=== PATIENT | female | born 1975 | race Caucasian/White ===

== ENCOUNTER 2020-03-25 09:57 | Outpatient (REF) | payer OTHER, SELFPAY ==
--- NOTE | 2020-03-25 10:01 | MM_ITS ---
EXAMINATION: MM SCREENING DIGITAL BREAST TOMOSYNTHESIS, BILATERAL CLINICAL INFORMATION: Screening. Asymptomatic. The lifetime risk of breast cancer based on the Tyrer-Cuzick Model is 14.1%. COMPARISON: Mammography: The 2018 and studies dating back to March 29, 2013 TECHNIQUE: Digital breast tomosynthesis is performed in both the craniocaudal and mediolateral oblique views along with computer-aided detection (CAD). Synthesized 2D images are generated from the tomosynthesis. FINDINGS: There are scattered areas of fibroglandular density (ACR BI-RADS breast composition Category b). There are no significant masses, abnormal calcifications, or other abnormalities. MM/MM tomosynthesis screening BI IMPRESSION: There are no significant changes from prior study. ASSESSMENT: BI-RADS 1: Negative RECOMMENDATION: Routine annual mammography screening. This patient's information was entered into a reminder system with a target due date for their next mammogram.
== END 2020-03-25 09:58 | disposition home or self-care (01) ==
LOC: HO.MAMMO 09:57
PROVIDERS: PCP Internal Medicine; Visit Provider Internal Medicine
DX: Z12.31 Encounter for screening mammogram for malignant neoplasm of breast (principal)
CPT/HCPCS: 77063; 77067

== ENCOUNTER → 2021-01-01 09:58 | Outpatient (BNVA) | payer OTHER, SELFPAY | PROVIDERS: PCP Internal Medicine; Visit Provider Advanced Practice Midwife ==

== ENCOUNTER 2021-04-07 10:35 | Outpatient (REF) | payer OTHER, SELFPAY ==
--- NOTE | ~2021-04-07 | MM_ITS ---
EXAMINATION: MM SCREENING DIGITAL BREAST TOMOSYNTHESIS, BILATERAL CLINICAL INFORMATION: Screening. Asymptomatic. The lifetime risk of breast cancer based on the Tyrer-Cuzick Model is 15%. COMPARISON: Mammography: 03/25/2020, 03/20/2019, 03/18/2018 TECHNIQUE: Digital breast tomosynthesis is performed in both the craniocaudal and mediolateral oblique views along with computer-aided detection (CAD). Synthesized 2D images are generated from the tomosynthesis. FINDINGS: There are scattered areas of fibroglandular density (ACR BI-RADS breast composition Category b). There are no significant masses, abnormal calcifications, or other abnormalities. The axilla and skin contours are unremarkable. Parenchymal pattern is similar to prior studies. No developing density. No significant changes. MM/MM tomosynthesis screening BI IMPRESSION: No mammographic evidence of malignancy. ASSESSMENT: BI-RADS 1: Negative RECOMMENDATION: Routine annual mammography screening. This patient's information was entered into a reminder system with a target due date for their next mammogram.
== END 2021-04-07 10:36 | disposition home or self-care (01) ==
LOC: HO.MAMMO 10:35
PROVIDERS: Visit Provider Internal Medicine
DX: Z12.31 Encounter for screening mammogram for malignant neoplasm of breast (principal)
CPT/HCPCS: 77063; 77067

== ENCOUNTER 2022-03-18 12:48 | Outpatient (REF) | payer OTHER, SELFPAY ==
--- NOTE | ~2022-03-18 | US_ITS ---
EXAMINATION: US PELVIS CLINICAL INFORMATION: Normal uterine bleeding, last menstrual period 02/23/2022. COMPARISON: 11/20/2016 TECHNIQUE: Ultrasound of the pelvis is performed using both transabdominal and transvaginal transducers along with Doppler. Transvaginal imaging is performed due to inadequate visualization transabdominally. FINDINGS: The uterus is heterogeneous and measures 8.4 x 4.2 x 5.3 cm. No discrete fibroids. Endometrial thickness is 0.7 cm. No significant free fluid. Nabothian cysts present. Right ovary is seen only on limited transabdominal ultrasound images and is grossly unremarkable. Right ovary measures 3.4 x 1.7 x 3.2 cm, volume 8.4 mL. Left ovary measures 2.0 x 2.0 x 1.5 cm, volume 3.2 mL. Simple left ovarian cyst measures 1.5 x 1.5 x 1.4 cm. US/US pelvic and transvaginal IMPRESSION: 1. Left ovarian 1.5 cm simple cyst was not identified on prior ultrasound. 2. No discrete fibroid. 3. Endometrial thickness is 0.7 cm. 4. Right ovary is grossly unremarkable on limited transabdominal ultrasound images. 5. Correlation with menstrual history and gynecologic consultation recommended.
[2022-03-18 14:08] LABS: Hematocrit 42.2 % (37.0-47.0); Mean Corpuscular HGB Conc 33.2 g/dl (31.0-35.0); Mean Corpuscular Hemoglobin 30.4 pg (27.0-33.0); Mean Corpuscular Volume 91.7 fL (80.0-98.0); Mean Platelet Volume 10.5 fL (9.4-12.3); Platelet Count 257 X10*3/uL (160-400); Red Cell Distribution Width 12.4 % (11.0-16.0); White Blood Count 9.5 X10*3/uL (4.8-10.8)
[2022-03-18 14:43] LABS: Thyroid Stimulating Hormone 1.65 uIU/mL (0.32-4.0)
== END 2022-03-18 12:49 | disposition home or self-care (01) ==
LOC: HO.HMGCX 12:48
PROVIDERS: PCP Internal Medicine; Visit Provider Advanced Practice Midwife
DX: N93.9 Abnormal uterine and vaginal bleeding, unspecified (principal); N92.1 Excessive and frequent menstruation with irregular cycle
CPT/HCPCS: 36415; 76830; 76856; 84443; 85027

== ENCOUNTER → 2022-04-01 09:24 | Outpatient (BNVA) | payer OTHER, SELFPAY | PROVIDERS: PCP Internal Medicine; Visit Provider Advanced Practice Midwife | DX: Z71.2 Person consulting for explanation of examination or test findings (principal); N93.9 Abnormal uterine and vaginal bleeding, unspecified; R23.2 Flushing | CPT/HCPCS: 58100 ==

== ENCOUNTER 2022-04-27 09:46 | Outpatient (REF) | payer OTHER, SELFPAY ==
--- NOTE | ~2022-04-27 | MM_ITS ---
EXAMINATION: MM SCREENING DIGITAL BREAST TOMOSYNTHESIS, BILATERAL CLINICAL INFORMATION: Screening. Asymptomatic. The lifetime risk of breast cancer based on the Tyrer-Cuzick Model is 16%. COMPARISON: Mammography: 04/07/2021, 03/25/2020, 03/20/2019 TECHNIQUE: Digital breast tomosynthesis is performed in both the craniocaudal and mediolateral oblique views along with computer-aided detection (CAD). Synthesized 2D images are generated from the tomosynthesis. FINDINGS: There are scattered areas of fibroglandular density (ACR BI-RADS breast composition Category b). There are no significant masses, abnormal calcifications, or other abnormalities. Parenchymal pattern is similar to prior studies. There is no developing density or architectural abnormality. The axilla and skin contours are unremarkable. No significant changes. MM/MM tomosynthesis screening BI IMPRESSION: No mammographic evidence of malignancy. ASSESSMENT: BI-RADS 1: Negative RECOMMENDATION: Routine annual mammography screening. This patient's information was entered into a reminder system with a target due date for their next mammogram.
== END 2022-04-27 09:47 | disposition home or self-care (01) ==
LOC: HO.MAMMO 09:46
PROVIDERS: PCP Internal Medicine; Visit Provider Internal Medicine
DX: Z12.31 Encounter for screening mammogram for malignant neoplasm of breast (principal)
CPT/HCPCS: 77063; 77067

== ENCOUNTER 2022-05-15 12:07 | Outpatient (REF) | payer OTHER, SELFPAY | END 2022-05-15 12:08 | disposition home or self-care (01) | LOC: HO.LNP 12:07 | PROVIDERS: PCP Internal Medicine; Visit Provider Obstetrics & Gynecology | DX: N93.9 Abnormal uterine and vaginal bleeding, unspecified (principal) | CPT/HCPCS: 58100; 88305 ==

== ENCOUNTER → 2022-06-04 13:04 | Outpatient (BNVA) | payer OTHER, SELFPAY | PROVIDERS: PCP Internal Medicine; Visit Provider Obstetrics & Gynecology | DX: Z13.89 Encounter for screening for other disorder (principal) ==

== ENCOUNTER → 2022-09-30 08:00 | Outpatient (BNVA) | payer OTHER, SELFPAY | PROVIDERS: PCP Internal Medicine; Visit Provider Obstetrics & Gynecology ==

== ENCOUNTER 2023-02-28 08:53 | Outpatient (AMB) | payer OTHER, SELFPAY ==
[2023-02-28 09:02] VITALS: BP 116/74; BMI 46.6
--- NOTE | 2023-02-28 09:02 | A.OFFVIS_ITS ---
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 Scribed for JULIA Alegre by Varsha Sawant medical office professional instructor, on 02/28/2023 at 9:25 am EST Extension Service Specialist Required: No Information Interpreted: non-clinical & clinical Door Operator: Door Operator Present (Aidyn) Allergies Penicillins Allergy (Unknown, Verified 02/28/23 09:05) HIVES Is last menstrual period known: Yes Last menstrual period: 01/19/23 Post menopausal: No HPI HPI Comments History of Present Illness Details She is a premenopausal woman presenting for annual exam. She attempts to eat healthy. She admits to not staying active. Currently sexually active. Uses condoms for BC. HX of irregular menses. Takes intermittent Provera. She had one in August last year, then nothing until March. Last menses was January 2023. Reports mild hot flashes. Denies vaginal itching and irritation. STD screening offered; she declines. Last pap smear 2019. Next pap due 2024. Last mammogram 04/27/22. Scheduled for colonoscopy next week. [facility] Medical History Morbid obesity with BMI of 40.0-44.9, adult Surgical History Hx of wisdom tooth extraction History of endometrial ablation Hx of dilation and curettage Family History Mother History of breast cancer Maternal Grandmother Ovarian cancer Father Prostate cancer Diabetes Pancreatic cancer Lymphoma Other HTN (hypertension) Social History Household Members: Spouse and Children Housing: House Alcohol intake: current Alcohol intake frequency: a few times a week Patient Tobacco Use Status: Never used Tobacco Current occupational status: employed 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 Sexual orientation: Straight/Heterosexual Gender identity: Female Female Reproductive History Menstrual Age of Menarche: 12 Duration of menses: 8-10 days Date of last menstrual period: 01/19/23 control method: none Total pregnancies: 4 Full term: 3 Number of Living Children: 3 Ab spontaneous: 1 Date of last pap smear: 12/22/19 (negative) History of abnormal pap smear: No Date of Mammogram: 04/27/22 Review of Systems Const All systems reviewed & are unremarkable except as noted in HPI and below Reports abnormal menses Physical Exam Vital Signs: Last Vital Signs BP 116/74 02/28/23 09:02 BMI result Body Mass Index 46.6 Const General: cooperative, healthy appearing, no acute distress, well developed and alert Orientation/consciousness: patient oriented x3 HEENT Head: Yes normal to inspection Eyes General: appearance normal, both eyes and all related structures Neck Neck: Yes normal visual inspection Thyroid: Thyroid normal Chest Chest palpation & inspection: normal inspection of the chest Breast/axilla inspection: normal inspection of the breasts (no puckering, dimpling, peau de orange, retraction, discharge, masses) Breast/axilla palpation: normal palpation of the breasts Resp Effort & Inspection: normal respiratory effort GI Inspection: Yes normal to inspection and Yes obesity Palpation (GI): Soft to palpation Rectal Exam - Female: deferred General: Yes bladder normal to palpation External Female Exam: normal external appearance and normal appearance of the urethra Speculum Exam - Vagina: normal appearance of the vagina, normal palpation and normal vaginal discharge Speculum Exam - Cervix: normal appearance of the cervix and normal palpation Bimanual exam- vagina & uterus: normal bimanual exam, normal palpation, uterine size normal, bladder normal to palpation and normal palpation Bimanual Exam- Adnexa, other: normal adnexae and no masses Skin General skin exam: no rashes or lesions noted Neuro General: patient oriented x3 Cognition (Neuro): normal cognition Extrem General: Yes normal to inspection Psych Attitude: cooperative Thought process: Normal thought process present Assessment & Plan Assessment & Plan (1) Encounter for well woman exam with routine gynecological exam: Code(s): Z01.419 - Encounter for gynecological examination (general) (routine) without abnormal findings Plan: Discussed: Current recommendations for pap smears per ASCCP guidelines. Breast awareness and periodic self breast exams. Maintaining a healthy lifestyle including a well balanced diet and routine exercise. All of her questions and concerns were addressed to the best of my ability. RTO in one year for AG. (2) Irregular menses: Code(s): N92.6 - Irregular menstruation, unspecified Plan: Counseled on perimenopause vs menopause. Continue intermittent Provera prn. Discussed with use of estrogen and progesterone with undiagnosed breast cancer. Some breast cancer can have positive receptors for hormones that can cause to it grow aggressively and can lead to metastatic disease and possibly be life threatening.?Encouraged SBE and report breast lumps as soon as possible. Contact office with any questions or concerns. Coding Level of Care Code Est Pt Prev Care 40-64y(49090) Diagnoses Encounter for well woman exam with routine gynecological exam Z01.419 Irregular menses N92.6
== END 2023-02-28 09:38 | disposition home or self-care (01) ==
PROVIDERS: Visit Provider Advanced Practice Midwife
DX: Z01.419 Encounter for gynecological examination (general) (routine) without abnormal findings (principal); N92.6 Irregular menstruation, unspecified
CPT/HCPCS: 99396

== ENCOUNTER → 2023-02-28 08:53 | Outpatient (BNVA) | payer OTHER, SELFPAY | PROVIDERS: Visit Provider Advanced Practice Midwife ==

== ENCOUNTER 2023-04-28 14:08 | Outpatient (REF) | payer OTHER, SELFPAY | END 2023-04-28 14:09 | disposition home or self-care (01) | LOC: HO.MAMMO 14:08 | PROVIDERS: PCP Internal Medicine; Visit Provider Internal Medicine | DX: Z12.31 Encounter for screening mammogram for malignant neoplasm of breast (principal) | CPT/HCPCS: 77063; 77067 ==

== ENCOUNTER → 2023-04-28 14:15 | Outpatient (BNV) | payer OTHER, SELFPAY | PROVIDERS: PCP Internal Medicine; Visit Provider Radiology Diagnostic Radiology | DX: Z12.31 Encounter for screening mammogram for malignant neoplasm of breast (principal) | CPT/HCPCS: 77063; 77067 ==

== ENCOUNTER 2024-03-10 08:41 | Outpatient (AMB) | payer OTHER, SELFPAY ==
--- NOTE | 2024-03-10 08:51 | A.OFFVIS_ITS ---
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 Doing well with concerns: LMP 06/2023, then started bleeding February 19 for the last 3 weeks intermittent, light spotting. UPT is negative today. Per patient portal today-[facility]gn[facility] reports last TSH 1.99, and hemoglobin-14.4, 09/12/2023 Currently is sexually active. She denies any pelvic pain, post coital bleeding or dysuria She denies vaginal itching and irritation. History of uterine ablation. Prior EMB was very painful for her, she would preferred consider her option of a hysterectomy. She has thought about doing BRCA testing but does not want to move forward at this time. She tries to eat healthy and stays active with exercise. Denies family history or colon cancer. Family history of breast and ovarian cancer. Last pap smear 2019, negative. Mammogram: 2023. 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 Sexual orientation: Straight/Heterosexual Gender identity: Female Female Reproductive History Menstrual Age of Menarche: 12 Total pregnancies: 4 Full term: 3 Ab spontaneous: 1 Date of last pap smear: 12/22/19 Date of Mammogram: 04/28/23 (bi rad 1) Review of Systems Const All systems reviewed & are unremarkable except as noted in HPI and below Reports as per HPI Eyes Reports no additional complaints ENT Reports no additional complaints Card Reports no additional complaints Resp Reports no additional complaints GI Reports as per HPI and Reports no additional complaints Reports as per HPI Musc Reports no additional complaints Skin/Breast Reports as per HPI Neuro Reports no additional complaints Psych Reports no additional complaints Endo Reports no additional complaints Francisco/Lymph Reports no additional complaints Aller/Immun Reports no additional complaints Physical Exam Vital Signs: Last Vital Signs BP 118/78 03/10/24 08:57 Const General: cooperative, healthy appearing, no acute distress, well developed and alert Orientation/consciousness: patient oriented x3 HEENT Head: Yes normal to inspection Eyes General: appearance normal, both eyes and all related structures Neck Neck: Yes normal visual inspection Thyroid: Thyroid normal Chest Chest palpation & inspection: normal inspection of the chest and other (no puckering, dimpling, peau de orange, retraction, discharge, masses) Breast/axilla inspection: normal inspection of the breasts Breast/axilla palpation: normal palpation of the breasts Resp Effort & Inspection: normal respiratory effort GI Inspection: Yes normal to inspection Palpation (GI): Soft to palpation Rectal Exam - Female: deferred General: Yes bladder normal to palpation External Female Exam: normal external appearance and normal appearance of the urethra Speculum Exam - Vagina: normal appearance of the vagina, normal palpation and normal vaginal discharge Speculum Exam - Cervix: normal appearance of the cervix and normal palpation Bimanual exam- vagina & uterus: normal bimanual exam, normal palpation, uterine size normal, bladder normal to palpation, normal palpation and non-tender Bimanual Exam- Adnexa, other: no masses Skin General skin exam: no rashes or lesions noted Rashes: no rashes Neuro General: patient oriented x3 Cognition (Neuro): normal cognition Extrem General: Yes normal to inspection Psych Attitude: cooperative Thought process: Normal thought process present Results AMB Test Urine AMB Test Urine Negative Last Edit by Yuli Clemons LPN on 03/10/24 09:45 Assessment & Plan Assessment & Plan (1) Encounter for well woman exam with routine gynecological exam: Code(s): Z01.419 - Encounter for gynecological examination (general) (routine) without abnormal findings Category: Medical (2) Abnormal uterine bleeding: Code(s): N93.9 - Abnormal uterine and vaginal bleeding, unspecified Category: Medical Plan Discussed: Current recommendations for pap smears per ASCCP guidelines. Breast awareness and periodic breast exams. Mammogram yearly. Maintain a healthy lifestyle including a well balanced diet and routine exercise. Workup for AUB to include pelvic ultrasound and EMB. Challenges of an EMB after an ablation for limitation of sampling. Follow up office for pending results and plan of care. Call sooner if there is any episodes of unscheduled bleeding. Patient verbalizes understanding and agrees to the plan of care. She was given opportunity to ask questions and all questions were answered to the best of my ability. RTO in one year for annual academic coordinator examination. This note is constructed using voice recognition software. While every effort has been made to ensure accuracy, chief nursing officer errors may have been included. Orders: Orders US pelvic and transvaginal Today N93.9 - Abnormal uterine and vaginal bleeding, unspecified Coding Level of Care Code Est Pt Prev Care 40-64y(13146) Diagnoses Encounter for well woman exam with routine gynecological exam Z01.419 Abnormal uterine bleeding N93.9
[2024-03-10 08:57] VITALS: BP 118/78
== END 2024-03-10 09:43 | disposition home or self-care (01) ==
LOC: HO.HWS 08:41
PROVIDERS: PCP Internal Medicine; Visit Provider Advanced Practice Midwife
DX: Z01.419 Encounter for gynecological examination (general) (routine) without abnormal findings (principal); N93.9 Abnormal uterine and vaginal bleeding, unspecified; Z32.02 Encounter for pregnancy test, result negative
CPT/HCPCS: 99396

== ENCOUNTER → 2024-03-10 08:41 | Outpatient (BNVA) | payer OTHER, SELFPAY | PROVIDERS: PCP Internal Medicine; Visit Provider Advanced Practice Midwife | DX: Z01.411 Encounter for gynecological examination (general) (routine) with abnormal findings (principal); N93.9 Abnormal uterine and vaginal bleeding, unspecified | CPT/HCPCS: 81025 ==

== ENCOUNTER 2024-03-25 11:22 | Outpatient (REF) | payer OTHER, SELFPAY ==
--- NOTE | ~2024-03-25 | US_ITS ---
EXAMINATION: US PELVIS CLINICAL INFORMATION: Last menstrual period 02/20/2024, abnormal uterine bleeding. COMPARISON: 03/18/2022. TECHNIQUE: Ultrasound of the pelvis is performed using both transabdominal and transvaginal transducers along with Doppler. Transvaginal imaging is performed due to inadequate visualization transabdominally. FINDINGS: The anteverted uterus measures 9.2 x 4.2 x 5.2 cm. Endometrial thickness is 5 mm. No significant free fluid. Right ovary measures 1.9 x 1.3 x 1.4 cm, volume 1.8 mL. Evaluation of right ovary is limited as right ovary is seen only on transabdominal ultrasound images. Left ovary measures 3.0 x 2.4 x 2.5 cm, volume 8.8 mL. No significant free fluid. US/US pelvic and transvaginal IMPRESSION: Endometrial thickness is 5 mm. Electronically signed by: Chelsie Cruz MD 05/11/2024 10:08 AM [facility]
== END 2024-03-25 11:23 | disposition home or self-care (01) ==
LOC: HO.US 11:22
PROVIDERS: PCP Internal Medicine; Visit Provider Advanced Practice Midwife
DX: N93.9 Abnormal uterine and vaginal bleeding, unspecified (principal)
CPT/HCPCS: 76830; 76856

== ENCOUNTER 2024-05-03 13:58 | Outpatient (REF) | payer OTHER, SELFPAY | END 2024-05-03 13:59 | disposition home or self-care (01) | LOC: HO.MAMMO 13:58 | PROVIDERS: PCP Internal Medicine; Visit Provider Internal Medicine | DX: Z12.31 Encounter for screening mammogram for malignant neoplasm of breast (principal) | CPT/HCPCS: 77063; 77067 ==

== ENCOUNTER → 2024-05-03 14:15 | Outpatient (BNV) | payer OTHER, SELFPAY | PROVIDERS: PCP Internal Medicine; Visit Provider Internal Medicine | DX: Z12.31 Encounter for screening mammogram for malignant neoplasm of breast (principal) | CPT/HCPCS: 77063; 77067 ==

== ENCOUNTER 2024-06-29 11:38 | Outpatient (REF) | payer OTHER, SELFPAY ==
[2024-06-29 12:36] LABS: Hematocrit 41.9 % (37.0-47.0); Hemoglobin 14.3 g/dl (12.0-16.0); Mean Corpuscular HGB Conc 34.1 g/dl (31.0-35.0); Mean Corpuscular Hemoglobin 30.4 pg (27.0-33.0); Platelet Count 249 X10*3/uL (160-400); Red Blood Count 4.71 X10*6/uL (4.20-5.50); Red Cell Distribution Width 12.4 % (11.0-16.0); White Blood Count 7.3 X10*3/uL (4.8-10.8)
[2024-06-29 13:22] LABS: Thyroid Stimulating Hormone 2.27 uIU/mL (0.32-4.0)
[2024-06-30 07:13] LABS: Follicle Stimulating Hormone 67.8 mIU/mL
== END 2024-06-29 11:39 | disposition home or self-care (01) ==
LOC: HO.LAB 11:38
PROVIDERS: PCP Internal Medicine; Visit Provider Advanced Practice Midwife
DX: N93.9 Abnormal uterine and vaginal bleeding, unspecified (principal); N92.1 Excessive and frequent menstruation with irregular cycle; R23.2 Flushing
CPT/HCPCS: 36415; 81025; 83001; 84443; 85027

== ENCOUNTER 2024-06-29 11:38 | Outpatient (AMB) | payer OTHER, SELFPAY ==
--- NOTE | 2024-06-29 11:44 | MHC.OFFVIS ---
Vital Signs 06/29/24 11:49 Height 5 ft 3 in Weight 244 lb BMI 43.2 BP 120/78 Intake Visit Reasons: Ultra sound follow up/?EMB Returns Supervisor: Returns Supervisor Present (Mili) Allergies Penicillins Allergy (Unknown, Verified 06/29/24 11:44) HIVES Is last menstrual period known: Yes (lasted 12 days, heavy) Last menstrual period: 05/12/24 HPI Comments Details: Patient is here today for a follow up ultrasound results, history of AUB. Her last known LMP was July of 2023, then random bleeding in February, last bled in April heavy for 12 days. [facility] labs at [facility] from August of 2023 hemoglobin was 14.4, TSH 1.99. [facility] Medical History Morbid obesity with BMI of 40.0-44.9, adult Surgical History Hx of wisdom tooth extraction History of endometrial ablation Hx of dilation and curettage Family History Mother History of breast cancer Maternal Grandmother Ovarian cancer Father Prostate cancer Diabetes Pancreatic cancer Lymphoma Other HTN (hypertension) Social History Household Members: Spouse and Children Housing: House Alcohol intake: current Alcohol intake frequency: a few times a week Patient Tobacco Use Status: Never used Tobacco Current occupational status: employed 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 Sexual orientation: Straight/Heterosexual Gender identity: Female Female Reproductive History Menstrual Age of Menarche: 12 Date of last menstrual period: 05/12/24 Review of Systems Const All systems reviewed & are unremarkable except as noted in HPI and below Endo Reports no additional complaints Physical Exam Vital Signs: Last Vital Signs BP 120/78 06/29/24 11:49 BMI result Body Mass Index 43.2 Const General: cooperative, healthy appearing and no acute distress Psych Appearance: well kempt Attitude: cooperative Thought process: Normal thought process present Results AMB Test Urine AMB Test Urine Negative Last Edit by GAGE Hammond on 06/29/24 12:12 Results Reviewed Results Reviewed: [address] [address] Ultrasound Report Signed Patient: Agnes Irby MR#: [id number] : 1975 Acct:[id number] Age/Sex: 48 / F ADM Date: 03/25/24 Loc: HO.US Attending Dr: Jazz Rosario CNM Ordering Physician: Jazz Rosario CNM Date of Service: 03/25/24 Procedure(s): US pelvic and transvaginal Accession Number(s): [id number] cc: Case Benton MD; Jazz Rosario CNM~ EXAMINATION: US PELVIS CLINICAL INFORMATION: Last menstrual period 02/20/2024, abnormal uterine bleeding. COMPARISON: 03/18/2022. TECHNIQUE: Ultrasound of the pelvis is performed using both transabdominal and transvaginal transducers along with Doppler. Transvaginal imaging is performed due to inadequate visualization transabdominally. FINDINGS: The anteverted uterus measures 9.2 x 4.2 x 5.2 cm. Endometrial thickness is 5 mm. No significant free fluid. Right ovary measures 1.9 x 1.3 x 1.4 cm, volume 1.8 mL. Evaluation of right ovary is limited as right ovary is seen only on transabdominal ultrasound images. Left ovary measures 3.0 x 2.4 x 2.5 cm, volume 8.8 mL. No significant free fluid. US/US pelvic and transvaginal IMPRESSION: Endometrial thickness is 5 mm. Electronically signed by: Chelsie Cruz MD 05/11/2024 10:08 AM [facility] Dictated By: Chelsie Cruz MD Signed By: <Electronically signed by Chelsie Cruz MD in OV> 05/11/24 1008 DD/ 1128 TD/TT: 03/25/24 1141 Expeller Operator: Assessment & Plan Assessment & Plan (1) Abnormal uterine bleeding: Code(s): N93.9 - Abnormal uterine and vaginal bleeding, unspecified Category: Medical Plan Plan repeat labs-TSH, CBC and FSH. Advised endometrial biopsy, due to the difficulty with a previous biopsy recommend she see Dr. Charles for the procedure. Preprocedure planning with something to eat and drink and ibuprofen 3 tablets (200 mg) or Tylenol (2 tablets) per manufacture recommendations 1 hour before her appointment time. The patient expressed understanding and agreement with the plan of care. All of her questions and concerns were addressed to the best of my ability. This note is constructed using voice recognition software. While every effort has been made to ensure accuracy, corporate director of human resources errors may have been included. Orders: Orders Thyroid Stimulating Hormone Today N92.1 - Excessive and frequent menstruation with irregular cycle, N93.9 - Abnormal uterine and vaginal bleeding, unspecified Complete Blood Count no Diff Today N93.9 - Abnormal uterine and vaginal bleeding, unspecified Follicle Stimulating Hormone Today N93.9 - Abnormal uterine and vaginal bleeding, unspecified, R23.2 - Flushing AMB HCG Urine Test Today N93.9 - Abnormal uterine and vaginal bleeding, unspecified Coding Level of Care Code Est Pt Level 3 (25645) Diagnoses Abnormal uterine bleeding N93.9
[2024-06-29 11:49] VITALS: BP 120/78; BMI 43.2
== END 2024-06-29 12:57 | disposition home or self-care (01) ==
LOC: HO.HWS 11:38
PROVIDERS: PCP Internal Medicine; Visit Provider Advanced Practice Midwife
DX: N93.9 Abnormal uterine and vaginal bleeding, unspecified (principal)
CPT/HCPCS: 99213